=== PATIENT | female | born 1980 | race American Indian/Alaskan Native ===

== ENCOUNTER 2020-02-08 11:34 | Emergency (ER) | payer MEDICAID ==
--- NOTE | 2020-02-08 12:16 | Emergency Department Report ---
Blank Doc - Documentation Documentation: 39*-year-old female that presents with back pain. Denies any trauma or injuri es. Pt has HTN 205/126. Stated normal BP is 130s/80s. This initial assessment/diagnostic orders/clinical plan/treatment(s) is/are subject to change based on patient's health status, clinical progression and re- assessment by fellow clinical providers in the ED. Further treatment and workup at subsequent clinical providers discretion. Patient/guardians urged not to elope from the ED as their condition may be serious if not clinically assessed and managed. Initial orders include: 1- Patient sent to MAIN ED for further evaluation and treatment 2- cardaic workup differential dx: dissection, AAA, low back strain, uncontrolled HTN
--- NOTE | 2020-02-08 12:54 | XRay Report ---
CHEST 2 VIEWS INDICATION / CLINICAL INFORMATION: Chest Pain. Lower back ache. COMPARISON: None available. FINDINGS: SUPPORT DEVICES: None. HEART / MEDIASTINUM: The heart size and pulmonary vasculature are normal. The aorta is normal in [place]. LUNGS / PLEURA: No significant pulmonary or pleural abnormality. No pneumothorax. ADDITIONAL FINDINGS: Subchondral cystic changes involving the right greater tuberosity of the humerus are likely degenerative. IMPRESSION: No acute findings. Signer Name: Rosas Arvizu MD Signed: 02/08/2020 12:50 PM Workstation Name: [id number]
[2020-02-08 13:35] LABS: Bacteria,Urine 1+ /HPF (Negative); Bilirubin,Urine NEG (Negative); Blood,Urine LG (Negative); Color,Urine Yellow (Yellow); Mucus,Urine FEW /HPF; Protein,Urine <15 mg/dL mg/dL (Negative); Urobilinogen,Urine < 2.0 mg/dL (<2.0)
[2020-02-08] MEDS ORDERED: LIDOCAINE VISCOUS 2% 15 ML ORAL LIQD ONE (13:52)
[2020-02-08] MEDS ORDERED: ALUM-MAG HYDROXIDE-SIMETHICONE 200-200-20MG/5ML ORAL LIQD 30 ML ONE (13:53)
[2020-02-08 14:09] LABS: Basophils # (Auto) 0.1 K/mm3 (0.0-0.1); Basophils % (Auto) 0.8 % (0.0-1.8); Eosinophils % (Auto) 0.3 % (0.0-4.3); Hematocrit 31.9 % (30.3-42.9); Hemoglobin 10.2 gm/dl (10.1-14.3); Lymphocytes # (Auto) 1.8 K/mm3 (1.2-5.4); Lymphocytes % (Auto) 27.7 % (13.4-35.0); Mean Corpuscular HGB Conc 32 % (30-34); Mean Corpuscular Volume 74 fl (79-97); Monocytes # (Auto) 0.5 K/mm3 (0.0-0.8); Monocytes % (Auto) 7.6 % (0.0-7.3); Platelet Count 305 K/mm3 (140-440); Red Blood Count 4.28 M/mm3 (3.65-5.03); Red Cell Distribution Width 16.2 % (13.2-15.2)
[2020-02-08 14:19] LABS: INR 0.98 (0.87-1.13)
[2020-02-08 14:36] LABS: Alanine Aminotransferase 11 units/L (7-56); Albumin 4.2 g/dL (3.9-5); Blood Urea Nitrogen 10 mg/dL (7-17); Calcium 9.5 mg/dL (8.4-10.2); Hemolysis Index 5
[2020-02-08 14:40] LABS: BUN/Creatinine Ratio 14
[2020-02-08 16:54] VITALS: BP 206/120
[2020-02-08] MEDS ORDERED: hydrALAZINE 25 MG TAB PO ONE (16:54)
== END 2020-02-08 17:13 | disposition left against medical advice (07) ==
LOC: ED 11:34
DX: M54.6 Pain in thoracic spine (principal); Z53.21 Procedure and treatment not carried out due to patient leaving prior to being seen by health care provider
CPT/HCPCS: 36415; 71046; 80053; 81001; 84484; 84703; 85025; 85610; 85730